=== PATIENT | male | born 1970 | race Caucasian/White ===

== ENCOUNTER 2017-04-22 17:52 | Inpatient (IN) | payer BC ==
[~2017-04-22] VITALS: Ht 175.3 cm; Wt 84.4 kg
[2017-04-22 18:19] LABS: BASOPHIL (%) 0.5 % (0-1); BASOPHIL COUNT 0.1 K/uL (0-0.1); EOSINOPHIL (%) 0.1 % (0-5); HEMATOCRIT 45.2 % (38.0-50.0); IMMATURE GRANULOCYTE (%) 0.4 % (0.0-0.7); LYMPHOCYTE (%) 12.4 % (15-42); LYMPHOCYTE COUNT 1.9 K/uL (1.0-2.8); MCH 30.5 PG (29.0-34.0); MCHC 35.4 G/DL (30.0-36.0); MCV 86.3 FL (86-99); MONOCYTE (%) 4.8 % (3-12); MONOCYTE COUNT 0.8 K/uL (0-0.8); NEUTROPHIL (%) 81.8 % (45-76); NEUTROPHIL COUNT 12.7 K/uL (1.8-6.4); PLATELET COUNT 350 K/uL (156-360); RBC DIS.WIDTH-CV 13.4 % (11.8-14.6); RBC DIS.WIDTH-SD 42.2 % (39-53); RED BLOOD COUNT 5.24 M/uL (4.00-5.50); WHITE BLOOD COUNT 15.5 K/uL (4.1-10.2)
[2017-04-22 18:28] LABS: ALBUMIN 4.5 g/dL (3.2-4.8); CHLORIDE 104 mEq/L (99-109); POTASSIUM 3.5 mEq/L (3.7-5.4); PTT 28.5 SEC (25-37); SODIUM 133 mEq/L (136-147)
[2017-04-22 18:31] LABS: GLUCOSE 128 mg/dL (70-99); TOTAL PROTEIN 7.7 g/dL (6.4-8.3)
[2017-04-22 18:33] LABS: TOTAL BILIRUBIN 0.4 mg/dL (0.0-1.0)
[2017-04-22 18:34] LABS: ALKALINE PHOSPHATASE 85 IU/L (3-129); GFR ESTIMATE (CALCULATED) > 59 mL/min/ (58.99-99999)
[2017-04-22 18:36] LABS: AST (GOT) 48 IU/L (2-34); UREA NITROGEN (BUN) 7 mg/dL (9-23)
[2017-04-22 18:37] LABS: ALT (GPT) 20 IU/L (3-49); CREATINE KINASE 889 IU/L (1-294); TOTAL CK 889 IU/L (1-294)
[2017-04-22 18:41] LABS: TROP-I INTERPRETATION POSITIVE
[2017-04-22 18:44] LABS: CK-MB 83.2 ng/mL (0.0-4.9); CKMB RELATIVE INDEX 9.4 (0.0-3.9)
[2017-04-22 19:51] VITALS: BP 150/88
[2017-04-22 19:56] VITALS: BP 150/88
[2017-04-22 20:00] VITALS: BP 159/91
[2017-04-22 21:00] VITALS: BP 160/94
[2017-04-22 22:00] VITALS: BP 144/100
[2017-04-22 23:00] VITALS: BP 140/111
[2017-04-23] VITALS (20 sets, daily range): BP systolic 96–131; BP diastolic 58–96
[2017-04-23 05:05] LABS: BASOPHIL (%) 0.5 % (0-1); BASOPHIL COUNT 0.1 K/uL (0-0.1); EOSINOPHIL (%) 0.3 % (0-5); EOSINOPHIL COUNT 0.1 K/uL (0-0.3); HEMATOCRIT 43.9 % (38.0-50.0); HEMOGLOBIN 14.6 G/DL (12.5-16.6); IMMATURE GRANULOCYTE (%) 0.2 % (0.0-0.7); LYMPHOCYTE (%) 10.1 % (15-42); LYMPHOCYTE COUNT 1.7 K/uL (1.0-2.8); MCH 29.6 PG (29.0-34.0); MCHC 33.3 G/DL (30.0-36.0); MCV 88.9 FL (86-99); MONOCYTE COUNT 1.2 K/uL (0-0.8); NEUTROPHIL (%) 81.9 % (45-76); NEUTROPHIL COUNT 13.5 K/uL (1.8-6.4); PLATELET COUNT 321 K/uL (156-360); RBC DIS.WIDTH-CV 14.1 % (11.8-14.6); RBC DIS.WIDTH-SD 45.7 % (39-53); RED BLOOD COUNT 4.94 M/uL (4.00-5.50); WHITE BLOOD COUNT 16.5 K/uL (4.1-10.2)
[2017-04-23 05:33] LABS: CHLORIDE 104 MEQ/L (99-109); CREATININE 0.9 MG/DL (0.6-1.3); GFR ESTIMATE (CALCULATED) > 59 mL/min/ (58.99-99999); GLUCOSE 114 mg/dL (70-99); HDL CHOLESTEROL 28 MG/DL (Desirable>=40); LDL CHOLESTEROL 172 mg/dL (Desirable<100); NON-HDL CHOLESTEROL 197 mg/dL (Desirable<160); SODIUM 133 MEQ/L (136-147); TOTAL CHOLESTEROL 225 mg/dL (Desirable<200); TRIGLYCERIDES 125 MG/DL (Normal: <150); UREA NITROGEN (BUN) 7 mg/dL (9-23)
[2017-04-23 05:46] LABS: TROP-I INTERPRETATION POSITIVE; TROPONIN-I 83.69 ng/mL (0.0-0.30)
[2017-04-23 05:47] LABS: POTASSIUM 4.3 MEQ/L (3.7-5.4)
[2017-04-23 12:30] LABS: TROP-I INTERPRETATION POSITIVE; TROPONIN-I 35.25 ng/mL (0.0-0.30)
[2017-04-24 04:17] VITALS: BP 120/60
[2017-04-24 06:13] LABS: BASOPHIL (%) 0.9 % (0-1); BASOPHIL COUNT 0.1 K/uL (0-0.1); EOSINOPHIL (%) 1.7 % (0-5); EOSINOPHIL COUNT 0.2 K/uL (0-0.3); HEMATOCRIT 43.7 % (38.0-50.0); HEMOGLOBIN 14.4 G/DL (12.5-16.6); IMMATURE GRANULOCYTE (%) 0.3 % (0.0-0.7); LYMPHOCYTE COUNT 2.4 K/uL (1.0-2.8); MCH 29.6 PG (29.0-34.0); MCV 89.7 FL (86-99); MONOCYTE (%) 7.6 % (3-12); NEUTROPHIL (%) 70.5 % (45-76); PLATELET COUNT 309 K/uL (156-360); RBC DIS.WIDTH-CV 14.1 % (11.8-14.6); RBC DIS.WIDTH-SD 46.2 % (39-53); RED BLOOD COUNT 4.87 M/uL (4.00-5.50); WHITE BLOOD COUNT 12.8 K/uL (4.1-10.2)
[2017-04-24 06:28] LABS: CHLORIDE 105 MEQ/L (99-109); CREATININE 0.9 MG/DL (0.6-1.3); GFR ESTIMATE (CALCULATED) > 59 mL/min/ (58.99-99999); GLUCOSE 110 mg/dL (70-99); POTASSIUM 4.1 MEQ/L (3.7-5.4); SODIUM 137 MEQ/L (136-147); UREA NITROGEN (BUN) 12 mg/dL (9-23)
[2017-04-24 08:00] VITALS: BP 108/62
[2017-04-24 12:02] VITALS: BP 111/65
[2017-04-24] MEDS ORDERED: NITROSTAT0.4 MG SL (14:00)
[2017-04-24] MEDS ORDERED: NICOTINE PATCH1 EAC2 TD (14:00)
[2017-04-24] MEDS ORDERED: ASPIR-LOW81 MG PO (14:00)
[2017-04-24] MEDS ORDERED: LOPRESSOR25 MG PO (14:00)
[2017-04-24] MEDS ORDERED: CLOPIDOGREL75 MG PO (14:00)
[2017-04-24] MEDS ORDERED: ATORVASTATIN CA80 MG PO (14:00)
[2017-04-24 14:26] VITALS: BP 116/69
[2017-04-24 15:32] LABS: HEMOGLOBIN A1c (GLYCOHEMOGLOB) 5.8 % (Below 5.7)
== END 2017-04-24 14:50 | disposition home or self-care (01) | DRG 247 ==
LOC: EME 17:52 → CATH 18:10 → ENRESERV 18:12 → 4WEST 19:41 → 2SOUTH 19:41 → 4WEST 19:49 → ENRESERV 04-23 16:15 → 4EAST 04-23 17:28
PROVIDERS: Emergency Medicine; Internal Medicine Cardiovascular Disease
DX: I21.19 ST elevation (STEMI) myocardial infarction involving other coronary artery of inferior wall (principal); I25.10 Atherosclerotic heart disease of native coronary artery without angina pectoris; E78.5 Hyperlipidemia, unspecified; F17.210 Nicotine dependence, cigarettes, uncomplicated; Z82.49 Family history of ischemic heart disease and other diseases of the circulatory system
CPT/HCPCS: 71045; 80048; 80053; 80061; 82550; 82553; 83036; 83735; 83880; 84484; 85025; 85347; 85610; 85730; 86850; 86900; 86901; 87641; 90686; 93005; 94799; 99281; 99285; C1725; C1769; C1874; C1887; J1200; J1644; J2250; J3010; J3246; J7030